=== PATIENT | male | born 1985 | race Caucasian/White ===

== ENCOUNTER 2019-08-28 17:13 | Emergency (ER) | payer BC ==
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
[2019-08-28 21:51] VITALS: BP 125/88; TEMP 97.7; O2SAT 100
== END 2019-08-28 18:51 | disposition home or self-care (01) ==
LOC: ER 17:13
DX: R07.9 Chest pain, unspecified (principal); V49.49XA Driver injured in collision with other motor vehicles in traffic accident, initial encounter
CPT/HCPCS: 99282

== ENCOUNTER 2019-09-04 04:31 | Emergency (ER) | payer BC ==
--- NOTE | 2019-09-04 04:54 | EDPHYS ---
Physician Documentation [facility] Name: Flavio Rico Age: 34 yrs Sex: Male : 1985 Arrival Date: 09/04/2019 Time: 04:35 Bed 2 Private MD: ED Physician Manuel Up HPI: 09/04 04:47 This 34 yrs old Male presents to ER via Unassigned with complaints of rn Toothache. 04:47 The patient presents with pain. The problem is located in the left upper pre-molar. rn Onset: The symptoms/episode began/occurred at an unknown time. Duration: The symptoms are continuous. Modifying factors: The symptoms are alleviated by nothing, the symptoms are aggravated by chewing, cold fluids. Severity of symptoms: At their worst the symptoms were moderate, in the emergency department the symptoms are unchanged. The patient has experienced a previous episode. Reports left upper toothache, got worse today but has slowly been building for some time. No fever or swelling, no drainage, similar episode in past but on right side of mouth and had that tooth fixed. No injuries. . Historical: - Allergies: 05:06 No Known Allergies; bb - Home Meds: 05:06 None [Active]; bb - PMHx: 05:06 None; bb - PSHx: 05:06 None; bb - Immunization history:: Adult Immunizations up to date. - Social history:: Smoking status: Patient/guardian denies using tobacco. - Family history:: not pertinent. - Ebola Screening: : No symptoms or risks identified at this time. - Hospitalizations: : No recent hospitalization is reported. ROS: 04:47 Constitutional: Negative for fever, chills, and weight loss, ENT: + toothache Neck: rn Negative for injury, pain, and swelling, Neuro: Negative for weakness, numbness, tingling, and seizure. Exam: 04:47 Constitutional: This is a well developed, well nourished patient who is awake, alert, rn and in no acute distress. Ambulatory to room without difficulty or assistance. Head/Face: Normocephalic, atraumatic. Buccal space soft, non-fluctuant. Eyes: Pupils equal round and reactive to light, extra-ocular motions intact. Lids and lashes normal. Conjunctiva and sclera are non-icteric and not injected. Cornea within normal limits. Periorbital areas with no swelling, redness, or edema. ENT: + left upper pre-molar with cavity, not terrible, no necrosis, no sign of abscess Vital Signs: 05:06 BP 134 / 100; Pulse 74; Resp 14 S; Temp 97.1(TE); Pulse Ox 98% on R/A; Weight 90.72 kg bb (R); Height 5 ft. 5 in. (165.10 cm) (R); Pain 8/10; 05:06 Body Mass Index 33.28 (90.72 kg, 165.10 cm) bb MDM: 04:38 Patient medically screened. rn 04:47 Differential diagnosis: dental caries. Data reviewed: vital signs, nurses notes, and as rn a result, I will discharge patient. Counseling: I had a detailed discussion with the patient and/or guardian regarding: the historical points, exam findings, and any diagnostic results supporting the discharge/admit diagnosis, the need for outpatient follow up, to return to the emergency department if symptoms worsen or persist or if there are any questions or concerns that arise at home. Special discussion: I discussed with the patient/guardian in detail that at this point there is no indication for admission to the hospital. It is understood, however, that if the symptoms persist or worsen the patient needs to return immediately for re-evaluation. Based on the history and exam findings, there is no indication for further emergent testing or inpatient evaluation. I discussed with the patient/guardian the need to see a dentist for further evaluation of the symptoms. 04:47 ED course: Told him to get orajel and temporary filling at pharmacy, as well as close rn dental f/u. . Administered Medications: 05:06 Drug: TORadol 30 mg Route: IM; Site: right deltoid; ea 05:11 Follow up: Response: No adverse reaction bb Disposition: 09/04/19 04:53 Discharged to Home. Impression: Dental caries. - Condition is Stable. - Discharge Instructions: Dental Pain. - Prescriptions for Clindamycin HCl 300 mg Oral Capsule - take 1 capsule by ORAL route every 6 hours for 10 days; 40 capsule. Ultram 50 mg Oral Tablet - take 1 tablet by ORAL route every 6 hours As needed; 12 tablet. - Medication Reconciliation Form, Thank You Letter, Antibiotic Education, Prescription Opioid Use, Work release form form. - Follow up: Private Physician; When: As needed; Reason: Recheck today's complaints, Re-evaluation by your physician. - Problem is new. - Symptoms have improved. Signatures: Tonya Urban RN RN bb Nieto, Roman, MD MD rn Antunez, Elena, RN RN ea Corrections: (The following items were deleted from the chart) 05:12 04:53 09/04/2019 04:53 Discharged to Home. Impression: Dental caries. Condition is bb Stable. Forms are Medication Reconciliation Form, Thank You Letter, Antibiotic Education, Prescription Opioid Use. Follow up: Private Physician; When: As needed; Reason: Recheck today's complaints, Re-evaluation by your physician. Problem is new. Symptoms have improved. rn
[2019-09-04] MEDS ORDERED: KETOROLAC 30 MG/ML INJ ONE (05:05)
--- NOTE | 2019-09-04 05:14 | ER ---
Nurse's Notes [facility] Name: Flavio Rico Age: 34 yrs Sex: Male : 1985 Arrival Date: 09/04/2019 Time: 04:35 Bed 2 Private MD: Diagnosis: Dental caries Presentation: 09/04 04:40 Presenting complaint: Patient states: he started having a left upper jaw pain approx 6 bb hours ago. Transition of care: patient was not received from another setting of care. Onset of symptoms was September 04, 2019. Risk Assessment: Do you want to hurt yourself or someone else? Patient reports no desire to harm self or others. Initial Sepsis Screen: Does the patient meet any 2 criteria? No. Patient's initial sepsis screen is negative. Does the patient have a suspected source of infection? No. Patient's initial sepsis screen is negative. Care prior to arrival: None. 04:40 Method Of Arrival: Ambulatory bb 04:40 Acuity: KYLE 4 bb Historical: - Allergies: 05:06 No Known Allergies; bb - Home Meds: 05:06 None [Active]; bb - PMHx: 05:06 None; bb - PSHx: 05:06 None; bb - Immunization history:: Adult Immunizations up to date. - Social history:: Smoking status: Patient/guardian denies using tobacco. - Family history:: not pertinent. - Ebola Screening: : No symptoms or risks identified at this time. - Hospitalizations: : No recent hospitalization is reported. Screenin:08 Abuse screen: Denies threats or abuse. Nutritional screening: No deficits noted. bb Tuberculosis screening: No symptoms or risk factors identified. Fall Risk None identified. Assessment: 05:08 General: Appears in no apparent distress. Behavior is calm, cooperative. Pain: bb Complains of pain in left upper jaw. Neuro: Level of Consciousness is awake, alert, obeys commands, Oriented to person, place, time, situation. Cardiovascular: No deficits noted. Respiratory: Respiratory effort is even, unlabored, Respiratory pattern is regular. GI: No signs and/or symptoms were reported involving the gastrointestinal system. EENT: Reports pain in left jaw. Musculoskeletal: Circulation, motion, and sensation intact. 05:11 Reassessment: Patient is alert, oriented x 3, equal unlabored respirations, skin bb warm/dry/pink. pt verbalized understanding of and agrees to plan of care discharge instructions given pt ambulated with steady gait to exit. Vital Signs: 05:06 BP 134 / 100; Pulse 74; Resp 14 S; Temp 97.1(TE); Pulse Ox 98% on R/A; Weight 90.72 kg bb (R); Height 5 ft. 5 in. (165.10 cm) (R); Pain 8/10; 05:06 Body Mass Index 33.28 (90.72 kg, 165.10 cm) bb ED Course: 04:35 Patient arrived in ED. jg7 04:38 Manuel Up MD is Attending Physician. rn 04:54 Hollie Garzon RN is Primary Nurse. ea 05:06 Triage completed. bb 05:06 Arm band placed on Patient placed in an exam room, on a stretcher, on pulse oximetry. bb 05:08 Patient has correct armband on for positive identification. Bed in low position. Call bb light in reach. Pulse ox on. NIBP on. 05:08 No provider procedures requiring assistance completed. Patient did not have IV access bb during this emergency room visit. Administered Medications: 05:06 Drug: TORadol 30 mg Route: IM; Site: right deltoid; ea 05:11 Follow up: Response: No adverse reaction bb Outcome: 04:53 Discharge ordered by . rn 05:10 Discharged to home ambulatory. bb 05:10 Condition: stable 05:10 Discharge instructions given to patient, Instructed on discharge instructions, follow up and referral plans. medication usage, Demonstrated understanding of instructions, follow-up care, medications, Prescriptions given X 2. 05:12 Patient left the ED. bb Signatures: Tonya Urban RN Manuel Figueroa MD MD rn Antunez, Elena, RN RN ea Gutierrez, Jessica jg7 Corrections: (The following items were deleted from the chart) 05:10 04:40 Presenting complaint: Patient states: he started having a right upper jaw pain bb approx 6 hours ago bb
[2019-09-04 05:18] VITALS: BP 134/100; TEMP 97.1; O2SAT 98
== END 2019-09-04 05:12 | disposition home or self-care (01) ==
LOC: ER 04:31
DX: K02.9 Dental caries, unspecified (principal)
CPT/HCPCS: 96372; 99283

== ENCOUNTER 2021-09-20 00:11 | Emergency (ER) | payer BC ==
[2021-09-20 04:01] LABS: Urine Blood Negative (Negative); Urine Glucose Negative (Negative); Urine Protein Negative (Negative); Urine Specific Gravity >=1.030 (1.005-1.030)
[2021-09-20 08:45] LABS: Absolute Lymphocytes (CBC) 1.2 K/uL (0.7-4.9); Hematocrit 47.5 % (39.6-49.0); Lymphocytes % 27.1 % (15.3-44.8); MPV 8.3 fL (7.6-11.3); RBC Red Blood Cell Count 4.81 M/uL (4.33-5.43)
--- NOTE | 2021-09-20 08:46 | RAD REPORT ---
EXAM DESCRIPTION: US - Scrotum Testicles - 09/20/2021 7:34 am CLINICAL HISTORY: Testicular pain COMPARISON: None FINDINGS: Right testicle measures 4 x 2.2 x 2.9 centimeters. Echotexture is minimally inhomogeneous. Normal blood flow Left testicle measures 3.8 x 2 x 2.6 centimeters. Echotexture is ho minimally inhomogeneous. Normal b lood flow The epididymides are normal in size and echotexture. Normal blood flow is seen. Small spermatoceles. IMPRESSION: No acute abnormality is displayed
--- NOTE | 2021-09-20 08:46 | RAD REPORT ---
EXAM DESCRIPTION: CT - Abdomen Pelvis W Contrast - 09/20/2021 8:33 am CLINICAL HISTORY: Abdominal pain COMPARISON: 2007 TECHNIQUE: Computed axial tomography of the abdomen pelvis was obtained. 100 cc Isovue-300 was admin istered intravenously. Oral contrast was not requested which limits evaluation of bowel. All CT scans are performed using dose optimization technique as appropriate and may include automated exposure control or mA/KV adjustment according to patient size. FINDINGS: Fatty liver Spleen, pancreas, adrenal and kidneys appear unremarkable. There is no evidence of diverticulitis. Normal appendix Relatively small umbilical hernia. The neck measures 1.6 centimeters IMPRESSION: No acute abnormality is displayed.
[2021-09-20 08:50] LABS: Albumin 4.4 g/dL (3.4-5.0); Bilirubin Direct 0.3 mg/dL (0-0.2); Potassium 3.9 mmol/L (3.5-5.1); Protein, Total 7.9 g/dL (6.4-8.2)
--- NOTE | 2021-09-20 09:13 | ER ---
Nurse's Notes [facility] Name: Flavio Rico Age: 36 yrs Sex: Male : 1985 Arrival Date: 09/20/2021 Time: 00:15 Bed DIS4 Private MD: Diagnosis: Lower abdominal pain, unspecified Presentation: 09/20 03:07 Chief complaint: Patient states: he is having left sided pain x 2 weeks but now is bb getting worse and pain with urination. Coronavirus screen: At this time, the client does not indicate any symptoms associated with coronavirus-19. Ebola Screen: No symptoms or risks identified at this time. Initial Sepsis Screen: Does the patient meet any 2 criteria? No. Patient's initial sepsis screen is negative. Does the patient have a suspected source of infection? No. Patient's initial sepsis screen is negative. Risk Assessment: Do you want to hurt yourself or someone else? Patient reports no desire to harm self or others. Onset of symptoms was September 20, 2021. 03:07 Method Of Arrival: Ambulatory 03:07 Acuity: KYLE 3 bb Triage Assessment: 03:07 General: Appears uncomfortable, Behavior is cooperative. Pain: Complains of pain in bb left flank. Neuro: Level of Consciousness is awake, alert, obeys commands, Oriented to person, place, time, situation. Cardiovascular: Capillary refill < 3 seconds Patient's skin is warm and dry. Respiratory: Respiratory effort is even, unlabored. GI: Abdomen is round. : Reports burning with urination. Derm: Skin is pink, warm \T\ dry. Musculoskeletal: Circulation, motion, and sensation intact. - Immunization history:: Adult Immunizations up to date, Pfizer x 2. - Social history:: Smoking status: Patient reports the use of cigarette tobacco products. Vital Signs: 03:07 BP 145 / 104; Pulse 65; Resp 20 S; Temp 97.8(O); Pulse Ox 100% on R/A; Weight 90.72 kg; bb Height 5 ft. 5 in. (165.10 cm); Pain 8/10; 03:07 Body Mass Index 33.28 (90.72 kg, 165.10 cm) ED Course: 00:15 Patient arrived in ED. jj6 03:07 Arm band placed on Patient placed in waiting room, Patient notified of wait time. bb 03:09 Triage completed. bb 06:21 Krishna Aranda PA is PHCP. jm 06:21 Rell Chapman MD is Attending Physician. jmm 07:34 US Scrotum Testicles In Process Unspecified. EDMS 08:27 Initial lab(s) drawn, by me, sent to lab. Inserted saline lock: 20 gauge in left [facility] antecubital area, using aseptic technique. Blood collected. 08:32 CT Abd/Pelvis - IV Contrast Only In Process Unspecified. EDMS 09:12 Alfred Gallo MD is Referral Physician. jmm 09:17 Urine Culture Sent. [facility] 09:45 Patient has correct armband on for positive identification. jl7 09:45 No provider procedures requiring assistance completed. IV discontinued, intact, jl7 bleeding controlled, No redness/swelling at site. Pressure dressing applied. Administered Medications: No medications were administered Outcome: 09:12 Discharge ordered by MD. [facility] 09:45 Discharged to home ambulatory. jl7 09:45 Condition: stable 09:45 Discharge instructions given to patient, Instructed on discharge instructions, follow up and referral plans. medication usage, Demonstrated understanding of instructions, follow-up care, medications, Prescriptions given X 2. 10:16 Patient left the ED. jl7 Signatures: Dispatcher [employer] [facility] Krishna Aranda PA PA jmm Ballard, Brenda, RN RN Vikki Santana RN RN jl7 Lori Aguilar [facility] Buffy Page jj6
--- NOTE | 2021-09-20 09:13 | EDPHYS ---
Physician Documentation [facility] Name: Flavio Rico Age: 36 yrs Sex: Male : 1985 Arrival Date: 09/20/2021 Time: 00:15 Bed DIS4 Private MD: ED Physician Rell Chapman HPI: 09/20 06:45 This 36 yrs old Male presents to ER via Ambulatory with complaints of Pain With jmm Urination, Abdominal Pain. 06:45 The patient presents with abdominal pain. Onset: The symptoms/episode began/occurred jmm gradually, 3 week(s) ago. The symptoms do not radiate. Associated signs and symptoms: Pertinent positives: dysuria, Pertinent negatives: nausea and vomiting, diarrhea. Associated signs and symptoms: Pertinent positives: testicular pain. The symptoms are described as achy. Modifying factors: The symptoms are alleviated by nothing, the symptoms are aggravated by nothing. The patient has not experienced similar symptoms in the past. - Immunization history:: Adult Immunizations up to date, Pfizer x 2. - Social history:: Smoking status: Patient reports the use of cigarette tobacco products. ROS: 06:45 Constitutional: Negative for fever, chills, and weight loss, Cardiovascular: Negative jmm for chest pain, palpitations, and edema, Abdomen/GI: Negative for abdominal pain, nausea, vomiting, diarrhea, and constipation. 06:45 Abdomen/GI: Positive for abdominal pain. 06:45 : Positive for urinary symptoms, testicular pain 06:45 All other systems are negative. Exam: 06:45 Constitutional: This is a well developed, well nourished patient who is awake, alert, jmm and in no acute distress. Head/Face: atraumatic. Eyes: EOMI, no conjunctival erythema appreciated ENT: Moist Mucus Membranes Neck: Trachea midline, Supple Chest/axilla: Normal chest wall appearance and motion. Cardiovascular: Regular rate and rhythm. No edema appreciated Respiratory: Normal respirations, no respiratory distress appreciated 06:45 Back: Normal ROM Skin: General appearance color normal MS/ Extremity: Moves all extremities, no obvious deformities appreciated, no edema noted to the lower extremities Neuro: Awake and alert, normal gait Psych: Behavior is normal, Mood is normal, Patient is cooperative and pleasant 06:45 Abdomen/GI: Inspection: abdomen appears normal, Bowel sounds: normal, Palpation: soft, mild abdominal tenderness, in the suprapubic area, right lower quadrant and left lower quadrant. Vital Signs: 03:07 BP 145 / 104; Pulse 65; Resp 20 S; Temp 97.8(O); Pulse Ox 100% on R/A; Weight 90.72 kg; bb Height 5 ft. 5 in. (165.10 cm); Pain 8/10; 03:07 Body Mass Index 33.28 (90.72 kg, 165.10 cm) bb MDM: 06:27 Patient medically screened. [facility] 09:11 Data reviewed: vital signs, nurses notes. Counseling: I had a detailed discussion with [facility] the patient and/or guardian regarding: the historical points, exam findings, and any diagnostic results supporting the discharge/admit diagnosis, radiology results, the need for outpatient follow up, to return to the emergency department if symptoms worsen or persist or if there are any questions or concerns that arise at home. ED course: CT is negative for an acute process. LFT's are slightly elevated. Advised to follow up with GI for further evaluation. Patient is otherwise given strict return precautions. Patient understood and agrees with the plan of care. . 09/20 04:01 Order name: Urine Dipstick-Ancillary; Complete Time: 06:23 [facility] 09/20 06:27 Order name: Basic Metabolic Panel; Complete Time: 08:51 [facility] 09/20 06:27 Order name: CBC with Diff; Complete Time: 08:47 [facility] 09/20 06:27 Order name: Hepatic Function; Complete Time: 08:51 [facility] 09/20 06:27 Order name: Lipase; Complete Time: 08:51 [facility] 09/20 06:27 Order name: Urine Culture [facility] 09/20 06:27 Order name: IV Saline Lock; Complete Time: 08:31 [facility] 09/20 06:27 Order name: Labs collected and sent; Complete Time: 08:31 [facility] 09/20 06:27 Order name: CT Abd/Pelvis - IV Contrast Only; Complete Time: 08:47 [facility] 09/20 06:56 Order name: US Scrotum Testicles; Complete Time: 08:47 [facility] Administered Medications: No medications were administered Disposition: 19:25 Co-signature as Attending Physician, Rell Chapman MD. [email or web address] Disposition Summary: 09/20/21 09:12 Discharge Ordered Location: Home [facility] Condition: Stable jmm Diagnosis - Lower abdominal pain, unspecified jmm Followup: [facility] - With: Alfred Gallo MD - When: 2 - 3 days - Reason: Recheck today's complaints, Continuance of care, Re-evaluation by your physician Discharge Instructions: - Discharge Summary Sheet jmm - Abdominal Pain, Adult jmm Forms: - Medication Reconciliation Form [facility] - Thank You Letter [facility] - Antibiotic Education [facility] - Prescription Opioid Use [facility] - Work release form [email or web address] Prescriptions: - dicyclomine 20 mg Oral Tablet - take 1 tablet by ORAL route 4 times per day; 30 tablet; Refills: 0, Product [facility] Selection Permitted - Pepcid 20 mg Oral Tablet - take 1 tablet by ORAL route every 12 hours for 10 days; 20 tablet; Refills: 0, [facility] Product Selection Permitted Signatures: Dispatcher [employer] EDKrishna Mcginnis PA PA jmm Ballard, Brenda, RN RN Rell Gonzalez MD MD [email or web address]
[2021-09-20 10:21] VITALS: BP 145/104; TEMP 97.8; O2SAT 100
== END 2021-09-20 10:16 | disposition home or self-care (01) ==
LOC: ER 00:11
DX: R10.30 Lower abdominal pain, unspecified (principal)
CPT/HCPCS: 36415; 74177; 76870; 80048; 80076; 81003; 82565; 83690; 85025; 87086; 87088; 99284

== ENCOUNTER 2023-04-06 11:15 | Emergency (ER) | payer BC ==
[2023-04-06] MEDS ORDERED: KETOROLAC 30 MG/ML INJ ONE (12:47)
[2023-04-06] MEDS ORDERED: NA CHLORIDE 0.9% 1,000 ML ONE (13:14)
[2023-04-06] MEDS ORDERED: FAMOTIDINE 20 MG/2 ML VIAL IV ONE (13:14)
--- NOTE | 2023-04-06 17:02 | EDPHYS ---
Physician Documentation [facility] Name: Flavio Rico Age: 37 yrs Sex: Male : 1985 Arrival Date: 04/06/2023 Time: 11:15 Bed 6 Private MD: JANNY Physician Kristian Ga HPI: 04/06 11:40 This 37 yrs old Male presents to ER via Ambulatory with complaints of kb Abdominal Pain - LLQ. 11:40 The patient presents with abdominal pain in the left lower quadrant. Onset: The kb symptoms/episode began/occurred 1 week(s) ago. The symptoms do not radiate. Associated signs and symptoms: none. The symptoms are described as constant. Modifying factors: The symptoms are alleviated by nothing, the symptoms are aggravated by nothing. Severity of pain: At its worst the pain was moderate in the emergency department the pain is unchanged. The patient has experienced similar episodes in the past. The patient has not recently seen a physician. Historical: - Allergies: 11:34 No Known Allergies; eh3 - Home Meds: 11:34 None [Active]; eh3 - PMHx: 11:34 None; eh3 - PSHx: 11:34 None; eh3 - Immunization history:: Adult Immunizations not up to date. - Social history:: Smoking status: Patient reports the use of cigarette tobacco products, denies chronic smoking, but will smoke occasionally, Patient uses alcohol, weekly. ROS: 11:40 Constitutional: Negative for fever, chills, and weight loss. kb 11:40 Abdomen/GI: Positive for abdominal pain, Negative for nausea, vomiting, and diarrhea. 11:40 All other systems are negative. Exam: 11:40 Constitutional: This is a well developed, well nourished patient who is awake, alert, kb and in no acute distress. Head/Face: Normocephalic, atraumatic. ENT: Moist Mucous membranes Cardiovascular: Regular rate and rhythm with a normal S1 and S2. No gallops, murmurs, or rubs. No pulse deficits. Respiratory: Respirations even and unlabored. No increased work of breathing. Talking in full sentences Skin: Warm, dry with normal turgor. Normal color. MS/ Extremity: Pulses equal, no cyanosis. Neurovascular intact. Full, normal range of motion. Neuro: Awake and alert, GCS 15, oriented to person, place, time, and situation. Moves all extremities. Normal gait. 11:40 Abdomen/GI: Inspection: abdomen appears normal, Bowel sounds: normal, Palpation: soft, in all quadrants, mild abdominal tenderness, in the right upper quadrant, left upper quadrant and left lower quadrant. Vital Signs: 11:31 BP 137 / 91; Pulse 101; Resp 18; Temp 98.6; Pulse Ox 97% on R/A; Weight 90.72 kg; eh3 Height 5 ft. 5 in. ; Pain 8/10; 11:38 BP 144 / 96; Pulse 88; Resp 16 S; Temp 98(TE); Pulse Ox 98% on R/A; aa5 12:42 BP 154 / 99; Pulse 95; Resp 16; Pulse Ox 99% on R/A; Pain 8/10; iw 15:59 BP 133 / 83; Pulse 58; Resp 16; Pulse Ox 100% on R/A; iw 11:31 Body Mass Index 33.28 (90.72 kg, 165.1 cm) eh3 11:31 Pain Scale: Adult eh3 12:42 Pain Scale: Adult iw MDM: 11:22 Patient medically screened. kb 12:58 Differential diagnosis: diverticulitis, gastritis, gastroesophageal reflux disease, kb non-specific abd pain. Data reviewed: vital signs, nurses notes. Discussion of test interpretation with radiology: I had a discussion with radiology regarding a test interpretation. verbal CT report received from Dr Harrison. No acute findings. Counseling: I had a detailed discussion with the patient and/or guardian regarding: the historical points, exam findings, and any diagnostic results supporting the discharge/admit diagnosis, lab results, radiology results, the need for outpatient follow up, a family practitioner, to return to the emergency department if symptoms worsen or persist or if there are any questions or concerns that arise at home. 04/06 11:25 Order name: IV Saline Lock; Complete Time: 11:49 kb 04/06 11:25 Order name: Labs collected and sent; Complete Time: 11:49 kb Administered Medications: 12:41 Drug: Ketorolac IVP 15 mg Route: IVP; Site: right antecubital; iw 16:00 Follow up: Response: No adverse reaction; Pain is decreased iw 13:10 Drug: NS 0.9% IV 1000 ml Route: IV; Rate: 1000 ml; Site: right antecubital; iw 14:10 Follow up: IV Status: Completed infusion; IV Intake: 1000ml aa5 13:10 Drug: Famotidine IVP 20 mg Route: IVP; Site: right antecubital; 16:00 Follow up: Response: No adverse reaction iw Disposition Summary: 04/06/23 15:53 Discharge Ordered Location: Home kb Condition: Stable kb Diagnosis - Lower abdominal pain, unspecified kb Followup: kb - With: Emergency Department - When: As needed - Reason: Worsening of condition Followup: kb - With: Private Physician - When: 2 - 3 days - Reason: Recheck today's complaints, Continuance of care, Re-evaluation by your physician Discharge Instructions: - Discharge Summary Sheet kb - Abdominal Pain, Adult, [id number] kb Forms: - Medication Reconciliation Form kb - Thank You Letter kb - Antibiotic Education kb - Prescription Opioid Use kb - Patient Portal Instructions kb Signatures: Danika Bates, JAVIER SULTANA-Marilee Starkey RN RN Jaylene Gunn RN RN 3 Mirian Gee RN aa5
--- NOTE | 2023-04-06 17:02 | ER ---
Nurse's Notes [facility] Name: Flavio Rico Age: 37 yrs Sex: Male : 1985 Arrival Date: 04/06/2023 Time: 11:15 Bed 6 Private MD: Diagnosis: Lower abdominal pain, unspecified Presentation: 04/06 11:31 Chief complaint: Patient states: LLQ pain started last week, c/o of bloating which gets eh3 worse after eating and cramping pain behind both knees, denies n/v/d. Coronavirus screen: Vaccine status: Patient reports receiving the 2nd dose of the covid vaccine. Ebola Screen: No symptoms or risks identified at this time. Initial Sepsis Screen: Does the patient meet any 2 criteria? HR > 90 bpm. No. Patient's initial sepsis screen is negative. Does the patient have a suspected source of infection? Yes: Acute abdominal pain. Risk Assessment: Do you want to hurt yourself or someone else? Patient reports no desire to harm self or others. Onset of symptoms was April 06, 2023. 11:31 Method Of Arrival: Ambulatory 3 11:31 Acuity: KYLE 3 eh3 Triage Assessment: 11:34 General: Appears in no apparent distress. uncomfortable, Behavior is calm, cooperative, eh3 appropriate for age. Pain: Complains of pain in left lower quadrant Pain does not radiate. Neuro: Level of Consciousness is awake, alert, obeys commands, Oriented to person, place, time, situation. Cardiovascular: Capillary refill < 3 seconds Patient's skin is warm and dry. Respiratory: Airway is patent Respiratory effort is even, unlabored. GI: Abdomen is round non-distended. Historical: - Allergies: 11:34 No Known Allergies; eh3 - Home Meds: 11:34 None [Active]; eh3 - PMHx: 11:34 None; eh3 - PSHx: 11:34 None; eh3 - Immunization history:: Adult Immunizations not up to date. - Social history:: Smoking status: Patient reports the use of cigarette tobacco products, denies chronic smoking, but will smoke occasionally, Patient uses alcohol, weekly. Screenin:35 [facility] ED Fall Risk Assessment (Adult) History of falling in the last 3 months, aa5 including since admission No falls in past 3 months (0 pts) Confusion or Disorientation No (0 pts) Intoxicated or Sedated No (0 pts) Impaired Gait No (0 pts) Mobility Assist Device Used No (0 pt) Altered Elimination No (0 pt) Score/Fall Risk Level 0 - 2 = Low Risk Oriented to surroundings, Maintained a safe environment, Educated pt \T\ family on fall prevention, incl call for assistance when getting out of bed. Abuse screen: Denies threats or abuse. Nutritional screening: No deficits noted. Tuberculosis screening: No symptoms or risk factors identified. Assessment: 11:35 General: Appears uncomfortable, Behavior is calm, cooperative. Pain: Complains of pain aa5 in left lower quadrant Pain does not radiate. Pain currently is 8 out of 10 on a pain scale. Quality of pain is described as sharp, Pain began 1 week ago Is intermittent. Neuro: Level of Consciousness is awake, alert, obeys commands, Oriented to person, place, time, situation. Cardiovascular: Heart tones S1 S2 present Rhythm is regular. Respiratory: Airway is patent Respiratory effort is even, unlabored, Respiratory pattern is regular, symmetrical. GI: Abdomen is round Last BM was April 05, 2023. Bowel sounds present X 4 quads. Abd is soft X 4 quads Patient currently denies diarrhea, nausea, vomiting. : No signs and/or symptoms were reported regarding the genitourinary system. EENT: No signs and/or symptoms were reported regarding the EENT system. Derm: Skin is pink, warm \T\ dry. Musculoskeletal: Range of motion: intact in all extremities. 12:41 Reassessment: Patient appears in no apparent distress at this time. Patient and/or iw family updated on plan of care and expected duration. Pain level reassessed. Patient is alert, oriented x 3, equal unlabored respirations, skin warm/dry/pink. pin is 8/10, medicated for pain, call light in reach, light dimmed. 14:10 Reassessment: Patient is alert, oriented x 3, equal unlabored respirations, skin aa5 warm/dry/pink. Patient states feeling better. 16:00 Reassessment: Patient appears in no apparent distress at this time. Patient and/or iw family updated on plan of care and expected duration. Pain level reassessed. Patient is alert, oriented x 3, equal unlabored respirations, skin warm/dry/pink. Patient states feeling better. Vital Signs: 11:31 BP 137 / 91; Pulse 101; Resp 18; Temp 98.6; Pulse Ox 97% on R/A; Weight 90.72 kg; eh3 Height 5 ft. 5 in. ; Pain 8/10; 11:38 BP 144 / 96; Pulse 88; Resp 16 S; Temp 98(TE); Pulse Ox 98% on R/A; aa5 12:42 BP 154 / 99; Pulse 95; Resp 16; Pulse Ox 99% on R/A; Pain 8/10; iw 15:59 BP 133 / 83; Pulse 58; Resp 16; Pulse Ox 100% on R/A; iw 11:31 Body Mass Index 33.28 (90.72 kg, 165.1 cm) eh3 11:31 Pain Scale: Adult eh3 12:42 Pain Scale: Adult iw ED Course: 11:16 Patient arrived in ED. am2 11:22 Danika Bates FNP-C [facility]. kb 11:22 Kristian Ga MD is Attending Physician. kb 11:34 Triage completed. eh3 11:34 Arm band placed on. eh3 11:35 Patient has correct armband on for positive identification. Bed in low position. Call aa5 light in reach. Side rails up X2. Warm blanket given. 11:37 Mirian Gee, RN is Primary Nurse. aa5 11:39 Initial lab(s) drawn, by me, sent to lab. Inserted saline lock: 20 gauge in right aa5 antecubital area, using aseptic technique. Blood collected. 16:00 No provider procedures requiring assistance completed. iw 16:00 IV discontinued, intact, bleeding controlled, No redness/swelling at site. Pressure aa5 dressing applied. Administered Medications: 12:41 Drug: Ketorolac IVP 15 mg Route: IVP; Site: right antecubital; iw 16:00 Follow up: Response: No adverse reaction; Pain is decreased iw 13:10 Drug: NS 0.9% IV 1000 ml Route: IV; Rate: 1000 ml; Site: right antecubital; iw 14:10 Follow up: IV Status: Completed infusion; IV Intake: 1000ml aa5 13:10 Drug: Famotidine IVP 20 mg Route: IVP; Site: right antecubital; iw 16:00 Follow up: Response: No adverse reaction iw Medication: 12:42 VIS not applicable for this client. iw Intake: 14:10 IV: 1000ml; Total: 1000ml. aa5 Outcome: 15:53 Discharge ordered by . rj 16:00 Discharged to home ambulatory. aa5 16:00 Condition: stable 16:00 Discharge instructions given to patient, Instructed on discharge instructions, follow up and referral plans. Demonstrated understanding of instructions, follow-up care. 16:02 Patient left the ED. aa5 Signatures: Danika Bates, PROPERTY MANAGEMENT ACCOUNTANT-C PROPERTY MANAGEMENT ACCOUNTANT-Marilee Starkey, RN RN iw Mirian Gee, RN RN aa5 Jenny Isabel Erin, RN RN eh3
[2023-04-06 17:45] LABS: Absolute Lymphocytes (CBC) 0.8 K/uL (0.7-4.9); Hematocrit 47.4 % (39.6-49.0); Lymphocytes % 8.1 % (15.3-44.8); MCV 98.5 fL (80-100); MPV 8.3 fL (7.6-11.3); RBC Red Blood Cell Count 4.81 M/uL (4.33-5.43)
--- NOTE | 2023-04-06 17:54 | RAD REPORT ---
EXAM DESCRIPTION: CT - Abdomen Pelvis W Contrast - 04/06/2023 5:34 pm CLINICAL HISTORY: Abdominal pain COMPARISON: 2019 TECHNIQUE: Computed axial tomography of the abdomen pelvis was obtained. 100 cc Isovue-300 was admin istered intravenously. Oral contrast was not requested which limits evaluation of bowel and appendix All CT scans are performed using dose optimization technique as appropriate and may include automated exposure control or mA/KV adjustment according to patient size. FINDINGS: Fatty liver. Focal fatty sparing left lobe. The spleen, pancreas and adrenals are unremarkable. Bilateral extrarenal pelves. Kidneys unremarkable Normal appendix. No evidence of diverticulitis. Small to moderate umbilical hernia contains fat IMPRESSION: No acute abnormality is displayed. Due to technical issues the exam could not be dictated until now. A preliminary report was given afte r the completion of this exam
[2023-04-06 18:37] LABS: Albumin 4.4 g/dL (3.4-5.0); Bilirubin Total 0.7 mg/dL (0.2-1.0); Potassium 3.8 mEq/L (3.5-5.1); Protein, Total 7.6 g/dL (6.4-8.2)
[2023-04-06 18:40] LABS: Specific Gravity > 1.030 (1.005-1.030); Urine Bacteria None Seen /HPF (<20); Urine Bilirubin NEGATIVE (Negative); Urine Blood Negative (Negative); Urine Clarity Clear (Clear); Urine Color Colorless (Yellow); Urine Glucose NEGATIVE (Negative); Urine Protein NEGATIVE (Negative); Urine RBC <5 /HPF (None Seen); Urine Urobilinogen Normal (Normal); Urine pH 7.5 (5.0-7.0)
[2023-04-06 20:11] VITALS: TEMP 98
[2023-04-06 20:14] VITALS: BP 133/83; O2SAT 100
== END 2023-04-06 16:02 | disposition home or self-care (01) ==
LOC: ER 11:15
DX: R10.32 Left lower quadrant pain (principal); F17.210 Nicotine dependence, cigarettes, uncomplicated
CPT/HCPCS: 96361; 85025; 81001; 36415; 83690; 80053; 74177; 96375; 96374; 99284; Q9967; J7030